=== PATIENT | female | born 1970 | race Two or more races ===

== ENCOUNTER 2022-05-20 09:10 | Emergency (ER) | payer OTHER ==
[~2022-05-20] VITALS: Ht 162.6 cm; Wt 76.2 kg
[2022-05-20] MEDS ORDERED: COZAAR50 MG PO (09:37)
== END 2022-05-20 15:14 | disposition home or self-care (01) ==
LOC: ER 09:10
DX: R10.84 Generalized abdominal pain (principal)

== ENCOUNTER → 2022-05-23 | Outpatient (CLI) | payer OTHER ==
[~2022-05-23] MED LIST: COZAAR50 MG PO
== END | disposition home or self-care (01) ==
LOC: MRI 07:56
PROVIDERS: ATTEND General Practice
DX: R10.9 Unspecified abdominal pain (principal)
CPT/HCPCS: 74181